=== PATIENT | male | born 1985 | race Caucasian/White ===

== ENCOUNTER 2016-05-26 09:03 | Emergency (ER) | payer BC ==
--- NOTE | 2016-05-26 10:07 | ERRECORD ---
[facility] EMERGENCY RECORD HPI EAR PAIN (09:20 KNGU) CHIEF COMPLAINT: Patient presents for evaluation of pain, to the right ear. HISTORIAN: History provided by patient, R ear pain / also decreased hearing history of ear impaction use ear drops but said it makes the pain pain worse. LOCATION: Symptoms are localized, most severe in the right ear. QUALITY: Pain is dull in nature, described as throbbing. SEVERITY: Maximum severity of symptoms mild, Currently symptoms are mild. TIME COURSE: Gradual onset of symptoms, There has been no change in the patient's symptoms over time. ASSOCIATED WITH: No associated cough, No associated fever. EXACERBATED BY: Patient's condition exacerbated by nothing. RELIEVED BY: Patient's condition relieved by nothing because patient has not tried anything for relief. ROS (09:28 KNGU) CONSTITUTIONAL: Negative constitutional review of systems, Historian denies fever. EYES: Negative eye review of systems. ENT: Historian reports otalgia. CARDIOVASCULAR: Negative cardiovascular review of systems. RESPIRATORY: Historian denies cough. GI: Negative gastrointestinal review of systems. NOTES: All systems reviewed, negative except as described above. PAST MEDICAL HISTORY (09:09 MSPE) MEDICAL HISTORY: No past medical history, Flu vaccine not up to date, Tetanus not up to date, Pneumococcal vaccine not up to date. MALE SURGICAL HISTORY: testicular surgery - age 8 or 9. PSYCHIATRIC HISTORY: No previous psychiatric history. SOCIAL HISTORY: Patient denies alcohol use, Patient denies drug use, Patient has no smoking history. KNOWN ALLERGIES No Known Drug Allergies NONE (Unconfirmed) CURRENT MEDICATIONS (09:07 MSPE) None VITAL SIGNS VITAL SIGNS: BP: 135/94, Pulse: 105, Resp: 18, Temp: 97.8 (Oral), Pain: 2, O2 sat: 96 on Room Air, Time: 05/26/2016 09:05. (09:05 MSPE) BP: 130/86, Pulse: 94, Resp: 16, Time: 05/26/2016 09:55. (09:55 MSPE) &a-1R&a+25V*p+0X*x6726B*c202B*c15G*c2P*p-0X&a-25V&a+1R Name: Prince Lao : 1985 M31 MedRec: [id number] AcctNum: [id number] Prepared: Danette May 26, 2016 10:38 by Interface Page 1 of 3 pMD [facility] EMERGENCY RECORD PHYSICAL EXAM (09:29 KNGU) CONSTITUTIONAL: Vital signs reviewed, Patient afebrile, Pulse normal, Blood pressure normal, Respiratory rate normal, Patient appears non toxic, Patient appears pain free, Patient alert and oriented to person, place and time. HEAD: Head exam normal. EYES: Eye exam normal. ENT: Ear exam included findings of, left external ear normal, right external ear with erythema, right external ear with impacted cerumen, tympanic membrane normal on the left, tympanic membrane bulging on the right. RESPIRATORY CHEST: Respiratory and chest exam normal. CARDIOVASCULAR: Cardiovascular assessment normal. PSYCHIATRIC: Psychiatric exam included findings of patient oriented to person place and time. DOCTOR NOTES (09:40 KNGU) TEXT: 31 yo M with R parital cerumen impaction was removed using ear lavage tm also red bulging / with canal inflamed prescribed amox and cortisporin otic otc Tylenol motrin as needed for pain follow up with pcp as needed. PATIENT PLAN: The patient will be discharged, The patient will follow up with primary care physician. DATA REVIEWED: Discussed with family. PROBLEM LIST No recorded problems DIAGNOSIS (09:42 KNGU) FINAL: PRIMARY: otitis externa R, ADDITIONAL: cerumen impacted R, otitis media R. PRESCRIPTION amoxicillin: CAPSULE : 500 mg : ORAL : Quantity: 1 Unit: tab(s) Route: ORAL Schedule: 3 times a day (after meals) Dispense: 21 Unit: tab(s) May substitute. Refills: No Refills . (09:42 KNGU) NOTES: No Refills. (09:42 KNGU) Cortisporin otic: SOLUTION, NON-ORAL : 3.5 mg/mL-10,000 unit/mL-1 % : OTIC : Quantity: 4 Unit: Drps Route: OTIC Schedule: 3 times a day Dispense: 1 Unit: Tube May substitute. Refills: No Refills . (09:44 KNGU) NOTES: for about 1 week or until symptoms resolved No Refills. (09:44 KNCASANDRA) DISPOSITION PATIENT: Disposition Type: Discharge, Disposition: *Discharge &a-1R&a+25V*p+0X*u4544S*c202B*c15G*c2P*p-0X&a-25V&a+1R Name: Prince Lao : 1985 M31 MedRec: [id number] AcctNum: [id number] Prepared: WedMay 26, 2016 10:38 by Interface Page 2 of 3 pMD [facility] EMERGENCY RECORD Home. (09:42 ADALID) Patient left the department. (09:59 RACHEL) Flores: ADALID=MD Rubi, Mesha MSPE=LUIGI Wren, Wendy &a-1R&a+25V*p+0X*m3112N*c202B*c15G*c2P*p-0X&a-25V&a+1R Name: Prince Lao : 1985 1 MedRec: [id number] AcctNum: [id number] Prepared: WedMay 26, 2016 10:38 by Interface Page 3 of 3 pMD MTDD
--- NOTE | 2016-05-26 10:14 | PICIS ---
[facility] EMERGENCY RECORD TRIAGE (09:07 MSPE) TRIAGE NOTES: c/o right ear being "completely stopped up"; unable to hear. (09:07 MSPE) PATIENT: NAME: Prince Lao, AGE: 31, GENDER: male, : Sun 1985, TIME OF GREET: WedMay 26, 2016 09:03, PREFERRED LANGUAGE: Bulgarian, ETHNICITY: Not or , ECODE BILLING MAP: [facility] ER, SSN: [id number], Zip Code: [address], KG WEIGHT: [phone], PHONE: , , , PERSON ID: [id number], PCP: Zaheer. (09:07 MSPE) COMPLAINT: UNABLE TO HEAR OUT OF RIGHT EAR. (09:07 MSPE) ADMISSION: URGENCY: [address] [employer], ADMISSION SOURCE: Home, TRANSPORT: CAR, BED: ER -03. (09:07 MSPE) TREATMENTS IN PROGRESS: Treatments given Prehospital: OTC "earache medicine". (09:09 MSPE) PROVIDERS: TRIAGE NURSE: Wendy Wren RN. (09:07 MSPE) VITAL SIGNS: BP 135/94, Pulse 105, Resp 18, Temp 97.8, (Oral), Pain 2, O2 Sat 96, on Room Air, Time 05/26/2016 09:05. (09:05 MSPE) PREVIOUS VISIT ALLERGIES: NONE. (09:07 MSPE) NONE. (09:09 MSPE) KNOWN ALLERGIES No Known Drug Allergies NONE (Unconfirmed) CURRENT MEDICATIONS (09:07 MSPE) None VITAL SIGNS VITAL SIGNS: BP: 135/94, Pulse: 105, Resp: 18, Temp: 97.8 (Oral), Pain: 2, O2 sat: 96 on Room Air, Time: 05/26/2016 09:05. (09:05 MSPE) BP: 130/86, Pulse: 94, Resp: 16, Time: 05/26/2016 09:55. (09:55 MSPE) NURSING ASSESSMENT: EAR (09:10 MSPE) CONSTITUTIONAL: Patient arrives ambulatory, Gait steady, History obtained from patient, Patient appears comfortable, Patient cooperative, Patient alert, Oriented to person, place and time, Skin warm, Skin dry, Skin normal in color. PAIN: to the right ear, Onset of pain yesterday. EAR: no drainage from ears, Hearing deficit described as, to the right ear, pt sts unable to hear "at all" out of right ear. Denies fever, chills, cough, congestion. Sts "just the ear".. Onset yesterday. NURSING PROCEDURE: DISCHARGE NOTE (09:55 MSPE) DISCHARGE: Patient discharged to home, ambulating without assistance, Summary of Care printed/ provided, Simple or moderate discharge teaching performed, Prescriptions given and instructions on side effects given, Above person(s) verbalized understanding of &a-1R&a+25V*p+0X*f1170L*c202B*c15G*c2P*p-0X&a-25V&a+1R Name: Prince Lao : 1985 M31 MedRec: [id number] AcctNum: [id number] Prepared: Danette May 26, 2016 10:44 by Interface Page 1 of 4 pMD [facility] EMERGENCY RECORD discharge instructions and follow-up care, Patient treated and evaluated by physician. BELONGINGS: Belongings remain with patient. VITAL SIGNS: BP: 130, / 86, Pulse: 94, Resp: 16. NURSING PROCEDURE: NURSE NOTES (09:35 MSPE) NURSES NOTES: Notes: Right ear irrigated [id number] slightly warm tap water. Sts now hears "popping sounds". No debris flushed from ear. HPI EAR PAIN (09:20 KNGU) CHIEF COMPLAINT: Patient presents for evaluation of pain, to the right ear. HISTORIAN: History provided by patient, R ear pain / also decreased hearing history of ear impaction use ear drops but said it makes the pain pain worse. LOCATION: Symptoms are localized, most severe in the right ear. QUALITY: Pain is dull in nature, described as throbbing. SEVERITY: Maximum severity of symptoms mild, Currently symptoms are mild. TIME COURSE: Gradual onset of symptoms, There has been no change in the patient's symptoms over time. ASSOCIATED WITH: No associated cough, No associated fever. EXACERBATED BY: Patient's condition exacerbated by nothing. RELIEVED BY: Patient's condition relieved by nothing because patient has not tried anything for relief. ROS (09:28 KNGU) CONSTITUTIONAL: Negative constitutional review of systems, Historian denies fever. EYES: Negative eye review of systems. ENT: Historian reports otalgia. CARDIOVASCULAR: Negative cardiovascular review of systems. RESPIRATORY: Historian denies cough. GI: Negative gastrointestinal review of systems. NOTES: All systems reviewed, negative except as described above. PAST MEDICAL HISTORY (09:09 MSPE) MEDICAL HISTORY: No past medical history, Flu vaccine not up to date, Tetanus not up to date, Pneumococcal vaccine not up to date. MALE SURGICAL HISTORY: testicular surgery - age 8 or 9. PSYCHIATRIC HISTORY: No previous psychiatric history. SOCIAL HISTORY: Patient denies alcohol use, Patient denies drug use, Patient has no smoking history. PHYSICAL EXAM (09:29 KNGU) CONSTITUTIONAL: Vital signs reviewed, Patient afebrile, Pulse &a-1R&a+25V*p+0X*q8367V*c202B*c15G*c2P*p-0X&a-25V&a+1R Name: Prince Lao : 1985 M31 MedRec: [id number] AcctNum: [id number] Prepared: WedMay 26, 2016 10:44 by Interface Page 2 of 4 pMD [facility] EMERGENCY RECORD normal, Blood pressure normal, Respiratory rate normal, Patient appears non toxic, Patient appears pain free, Patient alert and oriented to person, place and time. HEAD: Head exam normal. EYES: Eye exam normal. ENT: Ear exam included findings of, left external ear normal, right external ear with erythema, right external ear with impacted cerumen, tympanic membrane normal on the left, tympanic membrane bulging on the right. RESPIRATORY CHEST: Respiratory and chest exam normal. CARDIOVASCULAR: Cardiovascular assessment normal. PSYCHIATRIC: Psychiatric exam included findings of patient oriented to person place and time. EVENTS TRANSFER: Triage to Emergency Emergency Room -03. (WedMay 26, 2016 09:07 MSPE) Removed from Emergency Emergency Room -03. (09:59 MSPE) DOCTOR NOTES (09:40 KNGU) TEXT: 31 yo M with R parital cerumen impaction was removed using ear lavage tm also red bulging / with canal inflamed prescribed amox and cortisporin otic otc Tylenol motrin as needed for pain follow up with pcp as needed. PATIENT PLAN: The patient will be discharged, The patient will follow up with primary care physician. DATA REVIEWED: Discussed with family. PROBLEM LIST No recorded problems DIAGNOSIS (09:42 KNGU) FINAL: PRIMARY: otitis externa R, ADDITIONAL: cerumen impacted R, otitis media R. DISPOSITION PATIENT: Disposition Type: Discharge, Disposition: *Discharge Home. (09:42 KNGU) Patient left the department. (09:59 MSPE) INSTRUCTION (09:50 KNGU) DISCHARGE: CERUMEN IMPACTION, HOME CARE, OTITIS EXTERNA ADULT, OTITIS MEDIA, ABX TX (ADULT). SPECIAL: Follow-up with your primary physician as needed. PRESCRIPTION amoxicillin: CAPSULE : 500 mg : ORAL : Quantity: 1 Unit: &a-1R&a+25V*p+0X*z0710C*c202B*c15G*c2P*p-0X&a-25V&a+1R Name: Prince Lao : 1985 M31 MedRec: [id number] AcctNum: [id number] Prepared: Danette May 26, 2016 10:44 by Interface Page 3 of 4 pMD [facility] EMERGENCY RECORD tab(s) Route: ORAL Schedule: 3 times a day (after meals) Dispense: 21 Unit: tab(s) May substitute. Refills: No Refills . (09:42 KNGU) NOTES: No Refills. (09:42 KNGU) Cortisporin otic: SOLUTION, NON-ORAL : 3.5 mg/mL-10,000 unit/mL-1 % : OTIC : Quantity: 4 Unit: Drps Route: OTIC Schedule: 3 times a day Dispense: 1 Unit: Tube May substitute. Refills: No Refills . (09:44 KNGU) NOTES: for about 1 week or until symptoms resolved No Refills. (09:44 KNGU) IMAGING *DISCHARGE INSTRUCTIONS RECEIPT: Image captured from scanner. (09:57 MSPE) *SUPPLY CHARGE SHEET: Image captured from scanner. (09:58 MSPE) ADMIN (10:37 KNGU) DIGITAL SIGNATURE: MD Venegas Kim. Flores: ADALID=MD Venegas Kim MSPE=LUIGI Wren, [facility] &a-1R&a+25V*p+0X*h0077J*c202B*c15G*c2P*p-0X&a-25V&a+1R Name: Shilo Christian : 1985 M31 MedRec: [id number] AcctNum: [id number] Prepared: Danette May 26, 2016 10:44 by Interface Page 4 of 4 pMD MTDD
== END 2016-05-26 09:55 | disposition home or self-care (01) ==
LOC: NAV ERS 09:03
DX: H60.91 Unspecified otitis externa, right ear (principal); H61.21 Impacted cerumen, right ear; H66.91 Otitis media, unspecified, right ear
CPT/HCPCS: 99282

== ENCOUNTER 2021-04-24 17:39 | Emergency (ER) | payer BC ==
[2021-04-24] MEDS ORDERED: Ibuprofen 800 MG TAB ONE (18:03)
== END 2021-04-24 19:06 | disposition home or self-care (01) ==
LOC: NAV ERS 17:39
DX: U07.1 COVID-19 (principal)
CPT/HCPCS: 87804; 99283; U0003; U0005